=== PATIENT | male | born 1995 | race Caucasian/White ===

== ENCOUNTER 2016-11-26 20:27 | Emergency (ER) | payer MEDICAID ==
[~2016-11-26] VITALS: Ht 170.2 cm; Wt 59.0 kg
[~2016-11-26 20:27] MED LIST: CEPH500C PO; CLIN-73 PO; HYDR-3498 PO; IBUP-1542 PO
[2016-11-26 20:45] VITALS: Ht 170.2 cm; Wt 59.0 kg
[2016-11-26] MEDS ORDERED: BENZTROPINE 1 MG TAB PO ONE (21:00)
[2016-11-26] MEDS ORDERED: DIPHENHYDRAMINE 50 MG CAP PO ONE (21:00)
[2016-11-26] MEDS ORDERED: BEN50 PO (21:02)
[2016-11-26 22:03] VITALS: BP 127/87; PULSE 97; RESP 14; TEMP 98.5
--- NOTE | 2016-11-26 23:07 | ERD ---
ER Documentation Chief Complaint Date/Time DATE: 11/26/16 TIME: 23:05 Chief Complaint muscle tightness after taking risperadone HPI Patient is a 21-year-old male with no medical problems who presents with twisting of the face. The patient took Risperdal for the first time at 8 PM. He said that within an hour he started having twisting of his face and cramping of his muscles. He has never had this happen before but he has never taken Risperdal before either. Upon review of old medical records the patient one previous visit to the ER in 2014. He does not currently have a primary doctor. He has had no treatment as of yet. ROS All systems reviewed and are negative except as per history of present illness. Medications Home Meds Active Scripts Diphenhydramine Hcl* (Benadryl*) 50 Mg Cap, 50 MG PO Q6 Y for dystonic reaction , #30 CAP Prov:JENNIFER LYNCH MD 11/26/16 Hydrocodone Bit-Acetaminophen* (Avinger*) 5-325 Mg Tab, 1 TAB PO Q6 Y for PAIN, # 20 TAB Prov:SHANNAN SHERIDAN 12/03/14 Clindamycin Hcl* (Clindamycin Hcl*) 300 Mg Capsule, 300 MG PO TID for 10 Days, CAP Prov:SHANNAN SHERIDAN 12/03/14 Reported Medications Cephalexin* (Cephalexin*) 500 Mg Capsule, 500 MG PO Q6, CAP PER PT STARTED RX ON 12-02-14 12/03/14 Ibuprofen* (Ibuprofen*) 600 Mg Tablet, 600 MG PO Q6H Y for PAIN, TAB 12/03/14 Allergies Allergies: Coded Allergies: No Known Allergy (Unverified , 11/26/16) PMhx/Soc History of Surgery: No Anesthesia Reaction: No Hx Neurological Disorder: No Hx Respiratory Disorders: No Hx Cardiac Disorders: No Hx Psychiatric Problems: Yes (AUDIBLE HALLUCINATION FROM DRUGS) Hx Miscellaneous Medical Probl: No Hx Alcohol Use: Yes (SOCIALLY) Hx Substance Use: Yes (METH [id number] AGO) Hx Tobacco Use: Yes Smoking Status: Current some day smoker FmHx Family History: diabetes Physical Exam Vitals Vital Signs Date Time Temp Pulse Resp B/P Pulse Ox O2 Delivery O2 Flow Rate FiO2 11/26/16 22:03 98.5 97 14 127/87 100 Room Air 11/26/16 21:00 98.5 94 15 105/70 100 Room Air 11/26/16 20:45 98.5 106 18 115/76 99 Physical Exam Const: Patient has cramping of the upper extremities and his face Head: Atraumatic Eyes: Normal Conjunctiva ENT: Normal External Ears, Nose and Mouth. Neck: Full range of motion..~ No meningismus. Resp: Clear to auscultation bilaterally Cardio: Regular rate and rhythm, no murmurs Abd: Soft, non tender, non distended. Normal bowel sounds Skin: No petechiae or rashes Back: No midline or flank tenderness Ext: Cramping of the hands bilaterally Neur: Awake and alert Psych: Normal Mood and Affect Results 24 hrs Current Medications Medications (Trade) Dose Ordered Sig/Fernando Route PRN Reason Start Time Stop Time Status Last Admin Dose Admin Diphenhydramine HCl (Benadryl) 50 mg ONCE ONCE PO 11/26/16 21:00 11/26/16 21:01 DC 11/26/16 21:06 Benztropine Mesylate (Cogentin) 2 mg ONCE ONCE PO 11/26/16 21:00 11/26/16 21:01 DC 11/26/16 21:09 Procedures/MDM Smoking Cessation Therapy: Pt. was lectured for greater than 3 minutes on the health risks of continued smoking and the benefits of cessation. Patient is a 21-year-old male who presents with what appears to be an acute dystonic reaction. The history and physical exam is consistent with dystonic reaction. The patient was given Benadryl and Cogentin and feels better. The patient will be discharged with prescription for Benadryl. He was instructed not to take Risperdal in the future. He can return for any worsening symptoms. Departure Diagnosis: Primary Impression: Dystonic drug reaction Condition: Fair Patient Instructions: Drug Reaction, Dystonic Referrals: Your doctor Additional Instructions: Call your primary care doctor TOMORROW for an appointment during the next 1-2 days.See the doctor sooner or return here if your condition worsens before your appointment time. JENNIFER LYNCH MD Nov 26, 2016 23:07
== END 2016-11-26 22:04 | disposition home or self-care (01) ==
LOC: E/R 20:27
DX: G24.02 Drug induced acute dystonia (principal); T50.905A Adverse effect of unspecified drugs, medicaments and biological substances, initial encounter; F17.210 Nicotine dependence, cigarettes, uncomplicated; R40.2142 Coma scale, eyes open, spontaneous, at arrival to emergency department; R40.2252 Coma scale, best verbal response, oriented, at arrival to emergency department; R40.2362 Coma scale, best motor response, obeys commands, at arrival to emergency department
CPT/HCPCS: Z7502; Z7610; 99283